=== PATIENT | male | born 1980 | race Caucasian/White ===

== ENCOUNTER → 2019-07-15 | Outpatient (CLI) | payer OTHER ==
[~2019-07-15] MED LIST: AMBIEN 10 MG TA10 MG PO; AMLODIPINE BESY10 MG PO; ASPIRIN325 PO; BYSTOLIC10 MG PO; CELEXA 20 MG TA20 M1 PO; LIPITOR20 MG PO; LIPITOR80 MG PO; PHENERGAN 25 MG25 MG PO; PROTONIX40 M2 PO
== END ==
LOC: CAT 09:50
DX: Z13.6 Encounter for screening for cardiovascular disorders (principal); E78.00 Pure hypercholesterolemia, unspecified; I25.10 Atherosclerotic heart disease of native coronary artery without angina pectoris

== ENCOUNTER → 2021-08-02 | Outpatient (CLI) | payer BC | END | disposition home or self-care (01) | LOC: RAD 11:39 | PROVIDERS: ATTEND Internal Medicine | DX: R07.9 Chest pain, unspecified (principal); R06.02 Shortness of breath ==

== ENCOUNTER → 2021-08-22 | Outpatient (CLI) | payer BC | LOC: SJCVCIMAG 07:32 | PROVIDERS: ATTEND Internal Medicine | DX: I10 Essential (primary) hypertension (principal); E11.9 Type 2 diabetes mellitus without complications; E78.5 Hyperlipidemia, unspecified; Z82.49 Family history of ischemic heart disease and other diseases of the circulatory system; Z79.899 Other long term (current) drug therapy ==